=== PATIENT | male | born 2005 | race Caucasian/White ===

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

== ENCOUNTER 2023-05-10 23:11 | Emergency (ER) | payer MEDICAID, SELFPAY ==
[2023-05-10 23:17] VITALS: BP 130/60; PULSE 75; RESP 16; TEMP 37.2; O2SAT 100
--- NOTE | 2023-05-10 23:38 | ED.GENADUL_ITS ---
Discharge Plan Disposition Patient Disposition: Home Condition: Good Discharge Details Clinical Impression: Anxiety Primary Care Provider: Steve Crawford ED Provider: Brianna Hanson Home Meds and New Rx's Prescriptions: New hydroxyzine HCl 25 mg tablet 12.5 mg PO QID PRNQty: 15 0RF Discharge Instructions Instructions: Anxiety (ED) Additional Instructions: Take the hydroxyzine 1/2 tablet 4 times a day as needed for anxiety. Primary care will call you tomorrow for follow-up appointment for the next week. Return to ED for thoughts of hurting yourself or others. Medical Decision Making Patient looks quite comfortable in the ED. I will give him 2, 25 mg hydroxyzine tablets to go home with and a prescription. He will take one half a tablet when he gets home and repeat this x1 as needed. Primary care will call him tomorrow for a follow-up appointment. HPI General Date/Time Provider Initiated Documentation: 05/10/23 23:38 . HPI Narrative: This 17-year-old male patient presents with a chief complaint of anxiety. The patient reports that he has a history of this in the past. When I review his old notes it looks like he was on hydroxyzine and Wellbutrin. He says half a tablet of low-dose hydroxyzine worked well for him as did the Wellbutrin. He says he has had no problems for about 4 years but went through a bad break-up about a month ago. He thinks this may be the precipitating event for the anxiety starting again. He says he gets himself really worked up and then feels nauseous. He has had some dry heaving. There is no chest pain or shortness of breath. He has no thoughts of hurting himself or anybody else. He declined speaking to psychiatry at this time. I did tell him that I will get him an appointment with primary care. Related Data Home Medications Medication Instructions Recorded Confirmed hydroxyzine HCl 25 mg tablet 12.5 mg PO QID PRN #15 tabs 05/10/23 Previous Rx's Medication Instructions Recorded hydroxyzine HCl 25 mg tablet 12.5 mg PO QID PRN #15 tabs 05/10/23 Allergies Allergy/AdvReac Type Severity Reaction Status Date / Time No Known Allergies Allergy Verified 05/10/23 23:20 General Stated Complaint: Anxiety VON: 4 Review of Systems Constitutional Constitutional: Denies chills, Denies fever(s), Denies headache(s) and Denies weakness Eyes Eyes: Denies diplopia and Reports other (no redness) ENT Ears, Nose, Mouth, and Throat: Denies otalgia, Denies headache(s), Denies nasal congestion, Denies nasal discharge, Denies neck pain and Denies sore throat Cardiovascular Cardiovascular: Denies chest pain, Denies palpitations and Denies dyspnea Respiratory Respiratory: Denies cough and Denies dyspnea Gastrointestinal Gastrointestinal: Denies abdominal pain, Denies diarrhea, Denies nausea and Denies vomiting Genitourinary Genitourinary: Denies difficulty urinating and Denies dysuria Musculoskeletal Musculoskeletal: Denies myalgias, Denies muscle weakness, Denies neck pain, Denies numbness and Reports other (edema) Integumentary/Breasts Skin/Breast: Denies change in pigmentation and Denies rash Neurologic Neurologic: Denies headache(s), Denies numbness and Denies weakness Endocrine Endocrine: Denies palpitations PFSH All Active Problems Pityriasis versicolor (Acute) Anxiety (Chronic) Abdominal complaints (Acute) Insomnia (Acute) Panic attack (Acute) Abrasion of right leg (Acute) Learning difficulty (Chronic 11/30/15) on IEP for reading and math Normal weight, pediatric, BMI 5th to 84th percentile for age (Chronic 11/30/15) Routine child health exam (Acute 11/30/15) Tinea versicolor (Chronic 05/09/17) Surgical History No significant past surgical history Family History Mother Mental disorder depression/anxiety Father Essential hypertension Grandparent Essential hypertension Personal history of malignant neoplasm Heart disease PGF Hyperlipidemia PGF Mental disorder depression/anxiety Family history of thyroid problem MGM Stroke PGF Sister Age: 22 Mental disorder depression Social History Smoking/Tobacco Use Status: Current every day Tobacco Type: e-cigarettes Smoking risk assessment performed?: Yes Alcohol Intake: never Drug use: Never Substance use type: does not use Do you feel safe at home: Yes Do you feel safe in your relationship?: Yes Exam Const General: no acute distress, well developed, well groomed and not in acute distress Nutritional Appearance: well nourished Orientation: alert and oriented x3 HENMT Head: normocephalic and atraumatic Ears: external ears normal Mouth: oropharynx normal and moist mucous membranes Throat: posterior oropharynx normal Eyes Conjunctivae: conjunctivae normal Neck Neck: full ROM and supple Chest Chest: normal inspection of the chest Resp Effort & Inspection: normal respiratory effort Auscultation: clear to auscultation bilaterally Cardio Rate: regular rate Rhythm: regular rhythm Heart Sounds: no murmurs and no rubs GI Inspection: normal to inspection Palpation: soft, nontender and other (non distended) Auscultation: normal bowel sounds Skin General skin exam: no rashes or lesions noted and other (pink, warm, dry) Neuro General: patient alert, patient awake and patient oriented x3 Speech: speech normal Motor: other (GUERRERO) Sensory Exam: no sensory deficits noted Extrem General: normal to inspection, full ROM and pedal edema present Psych Mental Status: mental status grossly normal Speech and Movement: speech and movement normal Affect: normal affect Course Vital Signs Vital signs: Vital Signs Temperature 37.2 C 05/10/23 23:17 Pulse 75 05/10/23 23:17 Respiratory Rate 16 05/10/23 23:17 Blood Pressure 130/60 05/10/23 23:17 Pulse Oximetry 100 05/10/23 23:17 Temperature 37.2 C 05/10/23 23:17 Temperature Source Temporal Artery Scan 05/10/23 23:17 Pulse 75 05/10/23 23:17 Respiratory Rate 16 05/10/23 23:17 Respiratory Effort Normal 05/10/23 23:17 Blood Pressure 130/60 05/10/23 23:17 Blood Pressure Position Sitting 05/10/23 23:17 Pulse Oximetry 100 05/10/23 23:17 Pain Level 6 05/10/23 23:17
[2023-05-10 23:52] VITALS: RESP 16
[2023-05-11] MEDS: hydrOXYzine HCL 25 MG TAB 50 MG PO (00:05)
--- NOTE | 2023-05-11 04:46 | NUR.NOTE ---
Pt placed on care management lis tfor F/U with primary care for anxiety to be seen within 1 week.
== END 2023-05-11 00:23 | disposition home or self-care (01) ==
PROVIDERS: Emergency Provider Emergency Medicine; PCP Pediatrics
DX: F41.9 Anxiety disorder, unspecified (principal)
CPT/HCPCS: 99283

== ENCOUNTER 2023-05-18 22:18 | Emergency (ER) | payer MEDICAID, SELFPAY ==
[2023-05-18 22:24] VITALS: BP 152/81; PULSE 71; RESP 18; TEMP 36.9; O2SAT 96
[2023-05-18 22:29] VITALS: RESP 18
--- NOTE | 2023-05-18 22:44 | ED.GENADUL_ITS ---
Discharge Plan Disposition Patient Disposition: Home Condition: Stable Discharge Details Clinical Impression: Anxiety Primary Care Provider: Steve Crawford ED Provider: Kitty Solis Home Meds and New Rx's Prescriptions: New hydroxyzine HCl 25 mg tablet 25 mg PO QID PRN (Reason: anxiety) Qty: 20 0RF Rx Instructions: Take one tablet by mouth as needed for anxiety No Action escitalopram oxalate [Lexapro] 5 mg tablet 5 mg PO DAILY Qty: 30 0RF trazodone 50 mg tablet 25 mg PO QHS PRN (Reason: sleep) Qty: 15 0RF Discharge Instructions Instructions: Anxiety (ED) Additional Instructions: Discussed these medications with your primary care provider. Please do not take them altogether. Follow up with primary care provider in 3-5 days. Return to ED sooner if any worsening or concerns. Increase oral fluids. Referrals: Steve Crawford MD [Primary Care Provider] - 3 days Medical Decision Making 17 year old male presents to the ER with chief complaint of possible medication reaction. Patient was prescribed Escitalopram and Trazadone and he reports it makes him feel worse. He is requesting Hydroxyzine which seemed to help previously. Patient requesting Hydroxyzine. Prescription written and given 2 tablets to go. This text was generated using [employer] dictation system, please disregard any oddities of phrase or misspellings. HPI General Mode of arrival: ambulatory . Date/Time Provider Initiated Documentation: 05/18/23 22:31 . Limitations to Documentation: no limitations . Information obtained by: patient, RN notes reviewed and old records reviewed . HPI Narrative: 17 year old male presents to the ER with chief complaint of possible medication reaction. Patient was prescribed Escitalopram and Trazadone and he reports it makes him feel worse. He is requesting Hydroxyzine which seemed to help previously. Related Data Home Medications Medication Instructions Recorded Confirmed escitalopram oxalate 5 mg tablet 5 mg PO DAILY #30 tabs 05/17/23 05/18/23 (Lexapro) trazodone 50 mg tablet 25 mg PO QHS PRN sleep #15 tabs 05/17/23 05/18/23 hydroxyzine HCl 25 mg tablet 25 mg PO QID PRN anxiety #20 tabs 05/18/23 Previous Rx's Medication Instructions Recorded escitalopram oxalate 5 mg tablet 5 mg PO DAILY #30 tabs 05/17/23 (Lexapro) trazodone 50 mg tablet 25 mg PO QHS PRN sleep #15 tabs 05/17/23 hydroxyzine HCl 25 mg tablet 25 mg PO QID PRN anxiety #20 tabs 05/18/23 Allergies Allergy/AdvReac Type Severity Reaction Status Date / Time No Known Allergies Allergy Verified 05/18/23 22:28 General Stated Complaint: Anxiety VON: 4 Review of Systems All systems reviewed & are unremarkable except as noted in HPI and below PFSH All Active Problems (Updated 05/18/23 @ 22:48 by Kitty Solis NP) Pityriasis versicolor (Acute) Anxiety (Chronic) Abdominal complaints (Acute) Insomnia (Acute) Panic attack (Acute) Abrasion of right leg (Acute) Learning difficulty (Chronic 11/30/15) on IEP for reading and math Normal weight, pediatric, BMI 5th to 84th percentile for age (Chronic 11/30/15) Routine child health exam (Acute 11/30/15) Tinea versicolor (Chronic 05/09/17) Surgical History No significant past surgical history Family History Mother Mental disorder depression/anxiety Father Essential hypertension Grandparent Essential hypertension Personal history of malignant neoplasm Heart disease PGF Hyperlipidemia PGF Mental disorder depression/anxiety Family history of thyroid problem MGM Stroke PGF Sister Age: 22 Mental disorder depression Social History Smoking/Tobacco Use Status: Current every day Tobacco Type: e-cigarettes Smoking risk assessment performed?: Yes Alcohol Intake: never Drug use: Never Substance use type: does not use Do you feel safe at home: Yes Do you feel safe in your relationship?: Yes Exam Narrative Exam Narrative: Constitutional: Alert and oriented x3. Appears stated age. Normal body habitus. Head: Normocephalic, no trauma. Eyes: Pupils PERRL, Red reflex noted, EOM's intact. Eyelids symmetrical without lesions, discharge, or swelling. ENT: Bilateral TM's WNL, External ear normal to inspection, no mastoid TTP, swelling, or erythema, Nasal turbinates WNL, no nasal discharge. Normal dentition, Posterior pharynx WNL, no exudate. Chest: RRR, Normal S1, S2, distal pulses intact. Resp: Lungs clear to auscultation bilaterally, no wheezes, rales, or rhonchi. Abdomen: Soft, non-distended, Normoactive bowel sounds all 4 quads. Musculoskeletal: Normal gait, 5/5 strength to all four extremities. Skin: No suspicious rashes or lesions. Capillary refill less than 2 sec. Neurologic: Cranial nerves II-XII intact. Alert and oriented x 3. Motor: No deficits noted. Sensory: Intact bilaterally all 4 extremities. Reflexes: DTR's intact bilaterally.. Hematologic/Lymphatic: No ecchymosis, no lymphadenopathy. Course Vital Signs Vital signs: Vital Signs Temperature 36.9 C 05/18/23 22:24 Pulse 71 05/18/23 22:24 Respiratory Rate 18 05/18/23 22:24 Blood Pressure 152/81 H 05/18/23 22:24 Pulse Oximetry 96 05/18/23 22:24 Temperature 36.9 C 05/18/23 22:24 Temperature Source Skin 05/18/23 22:24 Pulse 71 05/18/23 22:24 Respiratory Rate 18 05/18/23 22:29 Respiratory Effort Normal 05/18/23 22:29 Respiratory Depth Normal 05/18/23 22:29 Respiratory Pattern Normal 05/18/23 22:29 Blood Pressure 152/81 H 05/18/23 22:24 Blood Pressure Position Sitting 05/18/23 22:24 Pulse Oximetry 96 05/18/23 22:24 Oxygen Delivery Method Room Air 05/18/23 22:24 Oxygen Flow Rate 0 05/18/23 22:24
[2023-05-18] MEDS: hydrOXYzine HCL 25 MG TAB 50 MG PO (23:01)
== END 2023-05-18 23:11 | disposition home or self-care (01) ==
PROVIDERS: Emergency Provider Registered Nurse Emergency; PCP Pediatrics
DX: F41.9 Anxiety disorder, unspecified (principal); R11.0 Nausea; F17.290 Nicotine dependence, other tobacco product, uncomplicated
CPT/HCPCS: 99282

== ENCOUNTER 2024-06-23 09:01 | Emergency (ER) | payer MEDICAID, SELFPAY ==
[2024-06-23 09:06] VITALS: BP 166/82; PULSE 81; RESP 16; TEMP 36.9; O2SAT 98
[2024-06-23 09:10] VITALS: RESP 16
--- NOTE | 2024-06-23 09:17 | W.ED.GENAD ---
Discharge Plan Disposition Patient Disposition: Home Discharge Details Clinical Impression: Anxiety Primary Care Provider: Steve Crawford ED Provider: Sophia Ortiz Home Meds and New Rx's Prescriptions: New hydroxyzine HCl 25 mg tablet 25 mg PO BID PRNQty: 10 0RF Discharge Instructions Additional Instructions: Take the hydroxyzine as needed for anxiety Follow-up with your commercial finance analyst at your scheduled appointment Please return with worsening symptoms or change in spine symptoms despite medication or should any new concerns arise Referrals: Steve Crawford MD [Primary Care Provider] - 2 days HPI General Date/Time Provider Initiated Documentation: 06/23/24 09:09. HPI Narrative: This 18-year-old male is presenting with report of increasing anxiety over the course of the past 2 weeks. States this happens annually. He did previously take medication escitalopram and trazodone which states pain is anxiety worse. Denies any chest pain, abdominal pain, nausea, vomiting, or any additional complaints at this time. Related Data Home Medications ?Medication ?Instructions ?Recorded ?Confirmed hydroxyzine HCl 25 mg tablet 25 mg PO BID PRN #10 tabs 06/23/24 Previous Rx's ?Medication ?Instructions ?Recorded hydroxyzine HCl 25 mg tablet 25 mg PO BID PRN #10 tabs 06/23/24 Allergies Allergy/AdvReac Type Severity Reaction Status Date / Time No Known Allergies Allergy Verified 05/18/23 22:28 General Stated Complaint: Anxiety VON: 3 Exam Narrative Exam Narrative: 18-year-old male in no acute distress, alert and oriented x 4, no suicidal or homicidal ideation documented, pupils equal round reactive to light and accommodation, ambulatory with stiff but steady gait, lungs clear to auscultation, cardiac rate rhythm regular Course Vital Signs Vital signs: Vital Signs Temperature 36.9 C 06/23/24 09:06 Pulse 81 06/23/24 09:06 Respiratory Rate 16 06/23/24 09:06 Blood Pressure 166/82 H 06/23/24 09:06 Pulse Oximetry 98 06/23/24 09:06 Temperature 36.9 C 06/23/24 09:06 Temperature Source Temporal Artery Scan 06/23/24 09:06 Pulse 81 06/23/24 09:06 Respiratory Rate 16 06/23/24 09:10 Respiratory Effort Normal, Non-Labored 06/23/24 09:10 Respiratory Depth Normal 06/23/24 09:10 Respiratory Pattern Normal 06/23/24 09:10 Blood Pressure 166/82 H 06/23/24 09:06 Blood Pressure Position Sitting 06/23/24 09:06 Pulse Oximetry 98 06/23/24 09:06 Oxygen Delivery Method Room Air 06/23/24 09:06 Oxygen Flow Rate 0 06/23/24 09:06 Pain Level 0 06/23/24 09:06 Medical Decision Making 18-year-old male presenting in no acute distress, insight and judgment are intact, patient endorsing some anxiety with history of similar, not currently taking any prescribed medications. Patient has an appointment scheduled in 2 days with his commercial finance analyst at [facility]. He is asking for hydroxyzine as needed for the next 2 days. I will write for 25 mg of hydroxyzine which patient may take twice daily. He does not endorse suicidality or homicidality and is comfortable discharge home at this time. No acute abnormalities on exam today return precautions reviewed and patient expressed understanding Quality:SDOH Health Related Social Needs: No Data to Display PFSH All Active Problems (Updated 06/23/24 @ 09:20 by VCI Ryder) Pityriasis versicolor (Acute) Anxiety (Chronic) Abdominal complaints (Acute) Insomnia (Acute) Panic attack (Acute) Abrasion of right leg (Acute) Learning difficulty (Chronic 11/30/15) on IEP for reading and math Normal weight, pediatric, BMI 5th to 84th percentile for age (Chronic 11/30/15) Routine child health exam (Acute 11/30/15) Tinea versicolor (Chronic 05/09/17) Surgical History No significant past surgical history Family History Mother Mental disorder depression/anxiety Father Essential hypertension Grandparent Essential hypertension Personal history of malignant neoplasm Heart disease PGF Hyperlipidemia PGF Mental disorder depression/anxiety Family history of thyroid problem MGM Stroke PGF Sister Age: 23 Mental disorder depression Social History Smoking/Tobacco Use Status: Current every day Tobacco Type: e-cigarettes Smoking risk assessment performed?: Yes Alcohol Intake: never Drug use: Occasionally Substance use type: marijuana Housing: house Do you feel safe at home: Yes Do you feel safe in your relationship?: Yes
== END 2024-06-23 17:49 | disposition home or self-care (01) ==
LOC: ER 09:48
PROVIDERS: Emergency Provider Physician Assistant; PCP Pediatrics
DX: F41.9 Anxiety disorder, unspecified (principal); F17.210 Nicotine dependence, cigarettes, uncomplicated
CPT/HCPCS: 99283